=== PATIENT | female | born 1980 | race Caucasian/White ===

== ENCOUNTER 2018-06-24 17:27 | Emergency (ER) | payer OTHER ==
[~2018-06-24] VITALS: Ht 160 cm; Wt 90.7 kg
--- NOTE | 2018-06-24 17:32 | ED NECK/BACK PAIN COMPLAINT ---
History of Present Illness General Chief Complaint: Low Back Pain/Injury Stated Complaint: LOWER BACK PAIN Source: patient Exam Limitations: no limitations Vital Signs & Intake/Output Vital Signs & Intake/Output Vital Signs Date Time Temp Pulse Resp B/P B/P Pulse O2 O2 Flow FiO2 Mean Ox Delivery Rate 06/24 2122 99.0 86 18 138/78 99 Room Air 06/24 1730 98.4 99 18 146/99 98 Room Air Allergies Coded Allergies: moxifloxacin (From AVELOX) (Severe, SWELLING 06/24/18) amoxicillin (UNKNOWN 06/24/18) Reconcile Medications Cyclobenzaprine HCl 10 MG TABLET 1 TAB PO QPM PRN muscle strain Methylprednisolone. (Medrol) 4 MG TAB.DS.PK 1 DP PO AD nerve inflammation 6 on day 1 then reduce by one tablet daily until gone Tramadol HCl 50 MG TABLET 1 TAB PO BIDP PRN pain Triage Nurses Notes Reviewed? yes Onset: Abrupt Duration: hour(s): Timing: single episode today Quality/Severity: severe Location: lumbar spine Radiation: left hip Context: turning/bending HPI: 38YO female presents to ED complaining of lower back pain beginning just prior to arrival. 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 Pain radiates from lumbar spine to left hip. 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 She reports base line "bad back" however today's symptoms are worse than baseline, described as severe. Patient denies urinary incontinence, saddle anesthesia, dysuria. (Brigitte Vogel) Past History Travel History Traveled to [place] past 21 day No Medical History Any Pertinent Medical History? none Surgical History Surgical History: non-contributory Psychosocial History What is your primary language Italian Family History Hx Contributory? No (Brigitte Vogel) Review of Systems Review of Systems Constitutional: Reports: no symptoms. Eyes: Reports: no symptoms. Ears, Nose, Throat, Mouth: Reports: no symptoms. Respiratory: Reports: no symptoms. Cardiovascular: Reports: no symptoms. Gastrointestinal/Abdominal: Reports: no symptoms. Musculoskeletal: Reports: see HPI. Skin: Reports: no symptoms. Neurological/Psychological: Reports: see HPI. All Other Systems: Reviewed and Negative (Brigitte Vogel) Physical Exam Physical Exam General Appearance: well developed/nourished, no apparent distress, alert, awake Head: atraumatic, normal appearance Eyes: Bilateral: normal appearance. Ears, Nose, Throat, Mouth: hearing grossly normal Neck: normal inspection, supple, full range of motion Respiratory: no respiratory distress Gastrointestinal: soft, non-tender Back: normal inspection, normal range of motion, no vertebral tenderness, no CVA tenderness Extremities: non-tender, normal range of motion Straight Leg Raising: Left: Pain at ____ degrees (30). Sensory: Medial Le: L4R, L4L. Top of Foot: 2: L5R, L5L. Sole of Foot: 2: SIR, ALPHONSO. Neurologic/Psych: awake, alert, oriented x 3, strength 5/5 equal bilateral lower extremities Skin: intact, normal color, warm/dry Core Measures CVA/TIA Diagnosis: No (Yasmine BLACKWELL,Brigitte Taveras) Progress Differential Diagnosis: cauda equina syn, herniated disc, myofascial strain, pyelo/UTI, sciatica, spinal cord inj, T/L spine injury, ureterolithiasis Plan of Care: Orders Procedure Date/time Status URINE 06/24 1732 Complete URINALYSIS 06/24 1732 Complete Current Medications Sig/Martita Start time Last Medication Dose Stop Time Status Admin Hydromorphone HCl 2 MG ONCE ONE 06/24 2015 CAN (Dilaudid) 06/24 2016 Laboratory Tests 06/24/18 1737: Urinalysis LIGHT H, Urine Color YEL, Urine Clarity HAZY H, Urine pH 6.0, Ur Specific [place] >= 1.030, Urine Protein NEG, Urine Ketones TRACE H, Urine Nitrite NEG, Urine Bilirubin NEG, Urine Urobilinogen 0.2, Ur Leukocyte Esterase NEG, Ur Microscopic SEDIMENT EXAMINED, Urine RBC 1-3, Urine WBC 10-15 H, Ur Epithelial Cells MOD H, Urine Bacteria MOD H, Granular Casts RARE H, Urine Mucus MOD H, Urine Hemoglobin NEG, Urine Glucose NEG, Urine Test NEGATIVE Patient has no saddle anesthesia or urinary incontinence to indicate acute cauda equina syndrome. Patient's back pain radiates toward left hip and is associated with paresthesias of left thigh, no gross sensory deficit on physical exam. Symptoms are worse with movement, straight-leg test is positive. Symptoms are most consistent with sciatica versus lumbar radiculopathy. X-ray shows degenerative changes however no acute findings. Patient's urinalysis does show 10-15 white blood cells however she has no dysuria, low suspicion for acute urinary tract infection. She has no CVA tenderness. No gross RBCs to indicate nephrolithiasis. The patient does report some improvement following medications in the emergency department. We will treat with steroids, pain relievers, muscle relaxants for her lumbar strain and radicular pain and have her follow-up with primary care doctor. The patient agrees with this plan, she is ambulatory here in the emergency department. Discussed findings with Dr. Phillip who agrees with this plan. Diagnostic Imaging: Viewed by Me: Radiology Read. Discussed w/RAD: Radiology Read. Radiology Impression: PATIENT: TROY MCGRATH PRESENT AGE: 38 PATIENT ACCOUNT NO: [id number] : 78 LOCATION: [facility] ORDERING PHYSICIAN: Brigitte BLACKWELL SERVICE DATE: 06/24/18 EXAM TYPE: RAD - XRY-LUMBOSACRAL SPINE 4 VIEWS EXAMINATION: XR LUMBOSACRAL SPINE CLINICAL INFORMATION: Acute low back pain and left radiculopathy COMPARISON: 09/10/2013 TECHNIQUE: 4 views of the lumbosacral spine were obtained. FINDINGS: Moderate L5 -S1 degenerative disc disease is similar. Normal alignment and lumbar lordosis. Mild degenerative disc disease at L2-L3 is new. Her fracture. No focal osseous lesion. IMPRESSION: Degenerative changes as described, most prominent at L5-S1. No fracture. Normal alignment. DICTATED BY: Carlos Quintero MD DATE/TIME DICTATED:06/24/181921 STUDENT TRUCK DRIVER:PRINCESS DATE/TIME TRANSCRIBED:1921 CONFIDENTIAL, DO NOT COPY WITHOUT APPROPRIATE AUTHORIZATION. < Electronically signed in Other Vendor System> SIGNED BY: Carlos Quintero MD 06/24/181925 (Yasmine BLACKWELL,Brigitte Taveras) Departure Departure Disposition: HOME OR SELF CARE Condition: Stable Clinical Impression Primary Impression: Back pain Secondary Impressions: Lumbar radiculopathy Referrals: Ivette Rose DO (PCP/Family) Additional Instructions: Take full course of steroids. Take muscle relaxer at night to help sleep. Take tramadol as prescribed as needed for pain, take this medication with food to prevent nausea. Follow-up with her primary care doctor. Return if worsening symptoms or concerns. Please note that there might be incidental findings in your evaluation that are unrelated to the current emergency department visit. Please notify your primary care doctor about this emergency department visit in order to obtain and review all of the testing performed so that these incidental findings can be monitored as needed. If you had an x-ray performed, please understand that some fractures may not be seen on the initial set of x-rays. If your symptoms persist you might need a repeat set of x-rays to check for such a fracture. If you had a laceration evaluated, please understand that foreign bodies such as glass or wood may not be visible to the naked eye or on plain x-rays. If the wound becomes red, swollen, increasingly more painful or if there is any drainage from the wound, please have it reevaluated by a physician for the possibility of a retained foreign body. If you're unable to follow up as outlined in the discharge instructions please return to the emergency department. Thank you for choosing the [facility] Emergency Department for your care. It was a pleasure to serve you today. Departure Forms: Customer Survey General Discharge Information Prescriptions: Current Visit Scripts Tramadol HCl 1 TAB PO BIDP PRN pain #10 TAB Cyclobenzaprine HCl 1 TAB PO QPM PRN muscle strain #10 TAB Methylprednisolone. (Medrol) 1 DP PO AD #1 DP 6 on day 1 then reduce by one tablet daily until gone (Yasmine BLACKWELL,Brigitte Taveras) PA/ASSEMBLER PIANO Co-Sign Statement Statement: ED Attending supervision documentation- I saw and evaluated the patient. I have also reviewed all the pertinent lab results and diagnostic results. I agree with the findings and the plan of care as documented in the PA's/ASSEMBLER PIANO's documentation. x I have reviewed the ED Record and agree with the PA's/ASSEMBLER PIANO's documentation. [] Additions or exceptions (if any) to the PAs/ASSEMBLER PIANO's note and plan are summarized below: [] (Kenji VERNON,[place])
--- NOTE | 2018-06-24 19:26 | RADIOLOGY REPORT ---
EXAMINATION: XR LUMBOSACRAL SPINE CLINICAL INFORMATION: Acute low back pain and left radiculopathy COMPARISON: 09/10/2013 TECHNIQUE: 4 views of the lumbosacral spine were obtained. FINDINGS: Moderate L5-S1 degenerative disc disease is similar. Normal alignment and lumbar lordosis. Mild degenerative disc disease at L2-L3 is new. Her fracture. No focal osseous lesion. IMPRESSION: Degenerative changes as described, most prominent at L5-S1. No fracture. Normal alignment.
[2018-06-24] MEDS ORDERED: MEDROL4 M2 PO (20:53)
[2018-06-24] MEDS ORDERED: TRAMADOL HCL50 M1 PO (20:53)
[2018-06-24] MEDS ORDERED: CYCLOBENZAPRINE10 M1 PO (20:53)
[2018-06-24 21:22] VITALS: BP 138/78
== END 2018-06-24 21:23 ==
LOC: ERH 17:27
DX: M54.16 Radiculopathy, lumbar region (principal)
CPT/HCPCS: 72110; 81001; 81025; 96372; J1885; J3101